=== PATIENT | female | born 2000 | race Caucasian/White ===

== ENCOUNTER 2018-12-15 19:38 | Emergency (ER) | payer MEDICAID, OTHER ==
[~2018-12-15] VITALS: Ht 157.5 cm; Wt 72.1 kg
[2018-12-15 19:43] VITALS: BP 128/89
--- NOTE | 2018-12-15 19:43 | NUR ---
TO BED # 12 AMBULATORY, REPORT GIVEN TO ORVILLE AHMADI
--- NOTE | 2018-12-15 19:53 | NUR ---
PT TO ED WITH C/O SOB AND COUGH X 1 DAY S/P EXPOSURE TO DOGS. NO OBVIOUS S/S OF DISTRESS. LUNG SOUNDS CLEAR BILATERALLY TO ASCULTATION. PT PLACED INTO BED, PENDING MD WILDE.
[2018-12-15] MEDS ORDERED: ALBUTEROL SULFATE/IPRATROPIU 3 ML SOL IH ONE (20:15)
[2018-12-15] MEDS ORDERED: predniSONE 20 MG TAB PO ONE (20:15)
--- NOTE | 2018-12-15 21:03 | NUR ---
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
[2018-12-15 21:50] VITALS: BP 130/84
--- NOTE | 2018-12-15 21:50 | NUR ---
Patient discharged with v/s stable. Written and verbal after care instructions given and explained. Patient alert, oriented and verbalized understanding of instructions. Ambulatory with steady gait. All questions addressed prior to discharge. ID band removed. Patient advised to follow up with PMD. Rx of BENADRYL, ALBUTEROL, AND PREDNISONE given. Patient educated on indication of medication including possible reaction and side effects. Opportunity to ask questions provided and answered.
== END 2018-12-15 21:50 | disposition home or self-care (01) ==
LOC: MED 19:38
DX: T78.40XA Allergy, unspecified, initial encounter (principal); X58.XXXA Exposure to other specified factors, initial encounter; Y93.89 Activity, other specified; Y92.89 Other specified places as the place of occurrence of the external cause; Y99.8 Other external cause status
CPT/HCPCS: 71045; 94640; 94760; 99283; J7512; J7620; Q0092

== ENCOUNTER 2020-06-17 10:34 | Emergency (ER) | payer OTHER ==
[~2020-06-17] VITALS: Ht 154.9 cm; Wt 73.7 kg
[2020-06-17 10:38] VITALS: BP 111/71
[2020-06-17 11:36] LABS: BASOPHILS % (AUTO) 0.4 % (0.0-2.0); EOSINOPHILS # (AUTO) 0.1 K/uL (0-0.4); EOSINOPHILS % (AUTO) 1.8 % (0.0-4.0); HEMATOCRIT 37.3 % (36-48); HEMOGLOBIN 12.5 g/dL (12.0-16.0); LYMPHOCYTES # (AUTO) 2.1 K/uL (2.5-16.5); LYMPHOCYTES % (AUTO) 28.4 % (20.5-51.1); MEAN CORPUSCULAR HEMOGLOBIN 28 pg (27-31); MEAN CORPUSCULAR HGB CONC 34 g/dL (33-37); MEAN CORPUSCULAR VOLUME 84.6 fL (80-94); MONOCYTES # (AUTO) 0.6 K/uL (0.8-1.0); MONOCYTES % (AUTO) 8.6 % (1.7-9.3); NEUTROPHILS # (AUTO) 4.6 K/uL (1.8-7.7); NEUTROPHILS % (AUTO) 60.8 % (42.2-75.2); PLATELET COUNT (AUTO) 195 K/uL (140-450); RED BLOOD CELL COUNT(AUTO) 4.41 MIL/uL (4.20-5.40); RED CELL DISTRIBUTION WIDTH 13.5 % (11.6-13.7); WHITE BLOOD COUNT (AUTO) 7.5 K/uL (4.8-10.8)
[2020-06-17 12:40] VITALS: BP 111/71
== END 2020-06-17 12:40 | disposition home or self-care (01) ==
LOC: MED 10:34
DX: O20.8 Other hemorrhage in early pregnancy (principal); O26.851 Spotting complicating pregnancy, first trimester; Z3A.01 Less than 8 weeks gestation of pregnancy
CPT/HCPCS: 36415; 76817; 81002; 84702; 85025; 86900; 86901; 99284; Q0092